=== PATIENT | female | born 1955 | race Asian ===

== ENCOUNTER → 2016-10-22 | Outpatient (CLI) | payer OTHER | LOC: BRMIMAGING 11:28 | DX: Z12.31 Encounter for screening mammogram for malignant neoplasm of breast (principal) | CPT/HCPCS: G0202 ==

== ENCOUNTER → 2017-12-30 | Outpatient (CLI) | payer OTHER | LOC: BRMIMAGING 11:40 | DX: Z12.31 Encounter for screening mammogram for malignant neoplasm of breast (principal) ==